=== PATIENT | female | born 1950 ===

== ENCOUNTER → 2019-07-03 | Outpatient (CLI) | payer OTHER ==
[~2019-07-03] MED LIST: ALEVE220 MG PO; KETO10TA2 PO; MOBIC7.5 MG PO; ORPH100T PO
== END | disposition home or self-care (01) ==
LOC: RAD 10:51
DX: M15.0 Primary generalized (osteo)arthritis (principal); M05.29 Rheumatoid vasculitis with rheumatoid arthritis of multiple sites

== ENCOUNTER 2019-07-04 07:21 | Outpatient (CLI) | payer OTHER | END 2019-07-04 07:29 | disposition home or self-care (01) | LOC: LAB 07:21 | DX: E11.9 Type 2 diabetes mellitus without complications (principal); E03.8 Other specified hypothyroidism; I10 Essential (primary) hypertension; M32.10 Systemic lupus erythematosus, organ or system involvement unspecified; E55.9 Vitamin D deficiency, unspecified; N39.0 Urinary tract infection, site not specified; M33.20 Polymyositis, organ involvement unspecified; M10.09 Idiopathic gout, multiple sites; M45.0 Ankylosing spondylitis of multiple sites in spine ==

== ENCOUNTER 2020-09-14 14:22 | Emergency (ER) | payer OTHER ==
[~2020-09-14] VITALS: Ht 175.3 cm; Wt 76.7 kg
[2020-09-14] MEDS ORDERED: OMEGA-3 ACID ETH1 GM PO (14:34)
[2020-09-14] MEDS ORDERED: TRIAMTERENE-HC1 EAC3 PO (14:34)
[2020-09-14] MEDS ORDERED: SERTRALINE HCL50 MG PO (14:34)
[2020-09-14] MEDS ORDERED: FLONASE16 GM NS (14:35)
[2020-09-14] MEDS ORDERED: LORAZEPAM0.5 MG PO (14:35)
[2020-09-14] MEDS ORDERED: QUETIAPINE FUMA50 MG PO (14:35)
== END 2020-09-14 18:55 | disposition home or self-care (01) ==
LOC: ER 14:22
DX: J01.80 Other acute sinusitis (principal); J06.9 Acute upper respiratory infection, unspecified; Z03.818 Encounter for observation for suspected exposure to other biological agents ruled out

== ENCOUNTER 2021-04-04 08:32 | Outpatient (CLI) | payer OTHER ==
[~2021-04-04 08:32] MED LIST changes: +FLONASE16 GM NS; +LORAZEPAM0.5 MG PO; +OMEGA-3 ACID ETH1 GM PO; +QUETIAPINE FUMA50 MG PO; +SERTRALINE HCL50 MG PO; +TRIAMTERENE-HC1 EAC3 PO
== END 2021-04-04 08:36 | disposition home or self-care (01) ==
LOC: LAB 08:32
PROVIDERS: ATTEND Obstetrics & Gynecology
DX: D64.89 Other specified anemias (principal); N39.0 Urinary tract infection, site not specified; R79.1 Abnormal coagulation profile; R79.89 Other specified abnormal findings of blood chemistry

== ENCOUNTER 2021-08-19 09:28 | Outpatient (CLI) | payer OTHER | END 2021-08-19 10:07 | disposition home or self-care (01) | LOC: MRI 09:28 | PROVIDERS: ATTEND Physical Medicine & Rehabilitation | DX: M25.511 Pain in right shoulder (principal) | CPT/HCPCS: 73221 ==

== ENCOUNTER 2021-11-10 09:06 | Outpatient (CLI) | payer OTHER | END 2021-11-10 10:34 | disposition home or self-care (01) | LOC: LAB 09:06 | PROVIDERS: ATTEND Family Medicine | DX: N39.8 Other specified disorders of urinary system (principal); I10 Essential (primary) hypertension; E78.00 Pure hypercholesterolemia, unspecified; E55.9 Vitamin D deficiency, unspecified; D64.9 Anemia, unspecified ==

== ENCOUNTER → 2022-10-18 09:30 | Outpatient (CLI) | payer OTHER | END | disposition home or self-care (01) | LOC: LAB 09:30 | DX: E72.11 Homocystinuria (principal) ==

== ENCOUNTER → 2022-10-25 | Outpatient (CLI) | payer OTHER | END | disposition home or self-care (01) | LOC: SONOGRAMA 07:40 | PROVIDERS: ATTEND Physical Medicine & Rehabilitation | DX: K76.0 Fatty (change of) liver, not elsewhere classified (principal) ==

== ENCOUNTER 2023-05-01 19:52 | Emergency (ER) | payer OTHER ==
[~2023-05-01] VITALS: Ht 172.7 cm; Wt 66.7 kg
== END 2023-05-01 23:38 | disposition home or self-care (01) ==
LOC: ER 19:52
DX: M94.0 Chondrocostal junction syndrome [Tietze] (principal); Z88.2 Allergy status to sulfonamides; I10 Essential (primary) hypertension
CPT/HCPCS: 71046; 71110; 96372; 99284; J1885

== ENCOUNTER 2023-08-25 10:19 | Emergency (ER) | payer OTHER ==
[~2023-08-25] VITALS: Ht 160 cm; Wt 59.0 kg
[2023-08-25 11:27] LABS: URINE BACTERIA 11.3 uL (0.0-1933); URINE EPITHELIAL CELLS 3.8 uL (0.0-38.8); URINE RBC 3.7 uL (0.0-20.8)
[2023-08-25 11:30] LABS: HEMOGLOBIN 11.6 g/dL (12.0-15.00); MEAN CORPUSCULAR HEMOGLOBIN 33.8 pg (27.00-32.0); MEAN CORPUSCULAR HGB CONC 34.2 g/dl (32.0-36.0); PLATELET COUNT 244 K/uL (150-450); RED BLOOD COUNT 3.43 M/uL (4.00-6.00); RED CELL DISTRIBUTION WIDTH 16.3 % (11.5-14.5)
[2023-08-25 11:33] LABS: PH,URINE 5.5 (5.0-8.0); URINE APPEARANCE Clear; URINE BILIRRUBIN Negative (NEGATIVE); URINE BLOOD Negative; URINE COLOR Yellow; URINE GLUCOSE Negative (NEGATIVE); URINE LEUKOCYTE Negative; URINE NITRATE Negative; URINE UROBILINOGEN 0.2 E.U./dl
[2023-08-25 11:38] LABS: URINE PROTEIN 100 (NEGATIVE); URINE WBC 0.6 uL (0.0-23.2)
[2023-08-25 11:56] LABS: ALBUMIN 3.4 gm/dL (3.4-5.0); BILIRUBIN TOTAL 0.56 mg/dL (0.3-1.2); CALCIUM 9.5 mg/dL (8.5-10.1); GFR 54.05; GLOBULINA 4.4 G/DL (2.4-3.5); POTASSIUM 3.52 mEq/L (3.5-5.1); TOTAL PROTEIN 7.8 gm/dL (6.4-8.2)
[2023-08-25 11:58] LABS: INR 0.99; PROTHROMBIN TIME 10.4 SECONDS (9.0-11.5)
== END 2023-08-25 18:10 | disposition home or self-care (01) ==
LOC: ER 10:19
PROVIDERS: Emergency Medicine
DX: R07.89 Other chest pain (principal); G30.8 Other Alzheimer's disease; F02.80 Dementia in other diseases classified elsewhere, unspecified severity, without behavioral disturbance, psychotic disturbance, mood disturbance, and anxiety; Z88.2 Allergy status to sulfonamides; Z20.822 Contact with and (suspected) exposure to COVID-19

== ENCOUNTER → 2024-04-07 | Emergency (ER) | payer OTHER ==
[~2024-04-07] VITALS: Ht 175.3 cm; Wt 68.0 kg
[~2024-04-07] MED LIST changes: +0.9 % SODIUM CHLORIDE 1,000 ML IV STA; +ARICEPT5 MG PO; +CEFTRIAXONE SODIUM 1,000 MG VIAL IV STA; +CEFTRIAXONE SODIUM 1,000 MG VIAL ONE; +CEFTRIAXONE SODIUM 2,000 MG VIAL IV STA; +HORIZANT300 MG PO; +KETOROLAC TROMETHAMINE 30 MG VIAL ONE; +METHYLPREDNISOLONE SOD SUCC 125 MG VIAL ONE
[2024-04-07 11:09] LABS: HEMATOCRIT 33.1 % (36.0-45.00); HEMOGLOBIN 11.5 g/dL (12.0-15.00); MEAN CELL VOLUME 94.1 fL (80.00-100.00); MEAN CORPUSCULAR HEMOGLOBIN 32.7 pg (27.00-32.0); MEAN CORPUSCULAR HGB CONC 34.8 g/dl (32.0-36.0); PLATELET COUNT 198 K/uL (150-450); RED BLOOD COUNT 3.52 M/uL (4.00-6.00); RED CELL DISTRIBUTION WIDTH 16.1 % (11.5-14.5)
[2024-04-07 11:39] LABS: ALBUMIN 3.4 gm/dL (3.4-5.0); BILIRUBIN TOTAL 0.24 mg/dL (0.3-1.2); CALCIUM 9.6 mg/dL (8.5-10.1); CREATININE SERUM 1.47 mg/dL (0.55-1.02); GFR 34.65; GLOBULINA 4.6 G/DL (2.4-3.5); POTASSIUM 3.92 mEq/L (3.5-5.1)
== END | disposition left against medical advice (07) ==
LOC: ER 08:57
PROVIDERS: General Practice
DX: L03.116 Cellulitis of left lower limb (principal); R60.0 Localized edema; Z88.1 Allergy status to other antibiotic agents; Z88.2 Allergy status to sulfonamides
CPT/HCPCS: 36415; 93971; 96365; 96366; 99284; J0696 ×2; J7030